=== PATIENT | male | born 1960 | race Caucasian/White ===

== ENCOUNTER → 2016-09-02 | Outpatient (CLI) | payer BC ==
[~2016-09-02] MED LIST: ANTI-DIARRHEA2 MG PO; ASPIR 8181 M1 PO; CALCIUM MAGNES1 EAC1 PO; CENTRUM SILVER1 EAC3 PO; HEPARIN SO5000 UNITS SC; LISINOPRIL10 MG PO; LOMOTIL TABLET1 EACH PO; LOPERAMIDE2 MG PO; OMEGA-31000 M1 PO; OSTEO BI-FLEX1 EAC3 PO; OXYCODONE HCL10 MG PO; OXYCONTIN10 MG PO; POTASSIUM CITR10 MEQ PO; VIAGRA100 MG PO; VITAMIN C + RO500 MG PO; VITAMIN D31000 UNI2 PO
== END | disposition home or self-care (01) ==
LOC: CDC 08:55
DX: Z01.810 Encounter for preprocedural cardiovascular examination (principal); S83.231A Complex tear of medial meniscus, current injury, right knee, initial encounter; S83.271A Complex tear of lateral meniscus, current injury, right knee, initial encounter; M25.561 Pain in right knee
CPT/HCPCS: 93000